=== PATIENT | female | born 1975 | race African-American/Black ===

== ENCOUNTER 2017-08-07 14:34 | Emergency (ER) | payer MEDICAID ==
[~2017-08-07] VITALS: Ht 170.2 cm; Wt 86.2 kg
[~2017-08-07 14:34] MED LIST: AZITHROMYCIN250 MG ORAL; CYCLOBENZAPRINE10 MG ORAL; IBUPROFEN600 MG ORAL; NKM; NORCO 5-325 TA1 EACH PO; SOMA350 MG PO
[2017-08-07 14:52] VITALS: BP 131/74
[2017-08-07] MEDS ORDERED: Ketorolac 60mg Inj IM ONE (15:45)
[2017-08-07] MEDS ORDERED: Metoclopramide 10mg/2ml Inj IM ONE (15:45)
[2017-08-07 16:17] LABS: APPEARANCE,URINE CLEAR; KETONES,URINE NEGATIVE (NEGATIVE); LEUKOCYTE ESTERASE ,URINE NEGATIVE (NEGATIVE); NITRITE,URINE NEGATIVE (NEGATIVE); PH,URINE 6.5 (4.5-8.0); PROTEIN,URINE NEGATIVE (NEGATIVE); UROBILINOGEN,URINE NORMAL MG/DL (0.0-1.0)
[2017-08-07] MEDS ORDERED: EXCEDRIN MIGRA1 EACH PO (17:04)
--- NOTE | 2017-08-07 17:04 | Emergency Room Report ---
History of Present Illness General Chief Complaint: Headache Source: Patient Present Illness HPI 41-year-old female presents to the emergency department complaining of 7/10 in severity progressive throbbing headache in the left frontal area of her head x3 days. Patient reports history of headaches however she denies diagnosis of migraines. Patient states that headaches usually resolved with over-the- counter Advil. Patient states that her symptoms are only mildly decreased with these interventions. Patient denies fevers, chills, urinary frequency, dysuria , hematuria, low back pain or recent illness. Patient denies dizziness, diplopia, photophobia, nausea or vomiting. She denies hyperacusis. Denies trauma or fall. Denies extremity weakness or instability . Denies CP, Palpitations, LOC, AMS, dizziness, Changes in Vision, Sensation, paresthesias, or a sudden severe headache. Allergies: Coded Allergies: No Known Allergies (Unverified , 02/19/15) Patient History Past Medical History: see triage record Past Surgical History: none Pertinent Family History: none Last Menstrual Period: one week ago Now: No Immunizations: UTD Reviewed Nursing Documentation: PMH: Agreed, PSxH: Agreed Nursing Documentation-PMH Past Medical History: No Stated History Review of Systems All Other Systems: negative except mentioned in HPI Physical Exam Vital Signs Date Time Temp Pulse Resp B/P (MAP) Pulse Ox O2 Delivery O2 Flow Rate FiO2 08/07/17 14:39 98.1 80 16 131/74 98 Room Air Sp02 EP Interpretation: reviewed, normal General Appearance: alert, GCS 15, non-toxic, mild distress Head: normocephalic, atraumatic Eyes: bilateral eye normal inspection, bilateral eye PERRL ENT: hearing grossly normal, normal voice, TMs + canals normal, uvula midline Neck: full range of motion, no meningismus, no bony tend, supple/symm/no masses Respiratory: lungs clear, normal breath sounds, speaking full sentences Cardiovascular #1: regular rate, rhythm Musculoskeletal: back normal, gait/station normal, normal range of motion, non- tender Neurologic: alert, oriented x3, responsive, motor strength/tone normal, sensory intact, cerebellar normal, normal gait, speech normal, no pronator, other - 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 Solorzano is my supervising Physician whom patient management has been discussed with. Diagnostic Impression: Primary Impression: Headache Qualified Codes: R51 - Headache ER Course 41-year-old female presents to the emergency department complaining of 7/10 in severity progressive throbbing headache in the left frontal area of her head x3 days. Patient reports history of headaches however she denies diagnosis of migraines. Patient states that headaches usually resolved with over-the- counter Advil. Patient states that her symptoms are only mildly decreased with these interventions. Patient denies fevers, chills, urinary frequency, dysuria , hematuria, low back pain or recent illness. Patient denies dizziness, diplopia, photophobia, nausea or vomiting. She denies hyperacusis. Denies trauma or fall. Denies extremity weakness or instability . Denies CP, Palpitations, LOC, AMS, dizziness, Changes in Vision, Sensation, paresthesias, or a sudden severe headache. - denies history of migraines Ddx considered but are not limited to migraine, SAH, Psedudo motor Cerebri, Mass lesion, Cluster POOL, Tension POOL, Post lumbar puncture POOL. Vital signs: are WNL, pt. is afebrile H&PE are most consistent with headache- with no focal neurological deficit, or acute onset. will r/o UTI and . Imaging is not warranted at this time. ORDERS: - UA: WNL- no evidence of infection -Urine HCG: negative ED INTERVENTIONS: -Reglan -IM Toradol DISCHARGE: At this time pt. is stable for d/c to home. Will provide printed patient care instructions, and any necessary prescriptions. Care plan and follow up instructions have been discussed with the patient prior to discharge. Labs Test 08/07/17 15:45 Urine Color Pale yellow Urine Appearance Clear Urine pH 6.5 (4.5-8.0) Urine Specific [place] 1.010 (1.005-1.035) Urine Protein Negative (NEGATIVE) Urine Glucose (UA) Negative (NEGATIVE) Urine Ketones Negative (NEGATIVE) Urine Occult Blood Negative (NEGATIVE) Urine Nitrite Negative (NEGATIVE) Urine Bilirubin Negative (NEGATIVE) Urine Urobilinogen Normal MG/DL (0.0-1.0) Urine Leukocyte Esterase Negative (NEGATIVE) Urine HCG, Qualitative Negative Last Vital Signs Date Time Temp Pulse Resp B/P (MAP) Pulse Ox O2 Delivery O2 Flow Rate FiO2 08/07/17 16:33 98.1 08/07/17 14:52 76 16 131/74 98 Room Air Disposition: HOME, SELF-CARE Condition: Stable Scripts Aspirin/Acetaminophen/Caffeine (EXCEDRIN MIGRAINE GELTAB) 1 Each Tablet 1 EACH PO Q6HR, #30 TAB Prov: Alise Figueroa 08/07/17 Referrals: [facility]ERR[facility] (PCP) Departure Forms: Return to Work Return to Work Date: Aug 08, 2017 Work Restrictions: None Return to Full Activity: Aug 08, 2017 Patient Instructions: General Headache Without Cause Additional Instructions: Take medications as directed. Follow up with a Neurologist in 3-5 days, even if your symptoms have resolved. --Please review list of primary care clinics, if you do not already have a primary care provider Return sooner to ED if new symptoms occur, or current symptoms become worse. - Please note that this Emergency Department Report was dictated using [employer] teacher technology software, occasionally this can lead to erroneous entry secondary to interpretation by the dictation equipment. Alise Figueroa Aug 07, 2017 17:04
[2017-08-07 17:14] VITALS: BP 128/73
[2017-08-07 17:16] VITALS: BP 128/73
== END 2017-08-07 17:26 | disposition home or self-care (01) ==
LOC: EMR 16:10
DX: R51 Headache (principal)
CPT/HCPCS: 81003; 81025; 96372; 99284; J2765

== ENCOUNTER 2018-02-26 10:06 | Emergency (ER) | payer MEDICAID ==
[~2018-02-26] VITALS: Ht 170.2 cm; Wt 85.7 kg
[~2018-02-26 10:06] MED LIST changes: +EXCEDRIN MIGRA1 EACH PO
[2018-02-26] MEDS ORDERED: IBUPROFEN600 MG ORAL ×2 (10:19→11:16)
[2018-02-26] MEDS ORDERED: Methocarbamol 750mg tab ORAL ONE (11:00)
[2018-02-26] MEDS ORDERED: Ketorolac 30mg Inj IM ONE (11:00)
--- NOTE | 2018-02-26 11:10 | Emergency Room Report ---
History of Present Illness General Chief Complaint: Pain Source: Patient Present Illness HPI 50-year-old female p/w back pain for 2 days. Pain is localized to right lower back, sharp in nature, radiating down leg. Movement worsens pain. There are no alleviating factors. Patient took Motrin with minimal relief. This is the first occurrence of back pain. Denies trauma. Denies lower extremity weakness/numbness, no bowel/bladder retention or incontinence, saddle anesthesia. Denies fever, chills, abdominal pain, n/v, dysuria/hematuria. No history of IVDA Allergies: Coded Allergies: No Known Allergies (Unverified , 02/19/15) Patient History Past Medical History: see triage record Past Surgical History: none Pertinent Family History: none Last Menstrual Period: 01/23/2018 Now: No Reviewed Nursing Documentation: PMH: Agreed; PSxH: Agreed Nursing Documentation-PMH Past Medical History: No Stated History Review of Systems All Other Systems: negative except mentioned in HPI Physical Exam Vital Signs Date Time Temp Pulse Resp B/P (MAP) Pulse Ox O2 Delivery O2 Flow Rate FiO2 02/26/18 10:13 98.4 90 16 133/67 97 Room Air 98.4 Sp02 EP Interpretation: reviewed, normal General Appearance: alert, GCS 15, moderate distress Head: normocephalic, atraumatic Eyes: bilateral eye normal inspection, bilateral eye PERRL, bilateral eye EOMI ENT: normal ENT inspection, normal pharynx, normal voice, moist mucus membranes Neck: normal inspection, full range of motion, supple Respiratory: normal inspection, lungs clear, normal breath sounds, no respiratory distress, no retraction, no wheezing, speaking full sentences, chest symmetrical Cardiovascular #1: normal inspection, regular rate, rhythm, no edema, normal capillary refill Cardiovascular #2: 2+ radial (R), 2+ radial (L) Gastrointestinal: normal inspection, non tender, soft, non-distended, no guarding Musculoskeletal: other - R lower lumbar paraspinal tenderness no midline tenderness from all ext Neurologic: normal inspection, alert, oriented x3, responsive, motor strength/ tone normal, sensory intact, normal gait, speech normal Psychiatric: normal inspection, judgement/insight normal, memory normal Skin: normal inspection, normal color, no rash, warm/dry, well hydrated, normal turgor Medical Decision Making Diagnostic Impression: Primary Impression: Back pain ER Course 50-year-old female p/w back pain DDX: Likely musculoskeletal back pain vs. muscular strain vs. sciatica Lumbar fracture is unlikely given patients age, no midline tenderness, no history of trauma, and that patient is ambulatory. Therefore, at this time no imaging is indicated Serious diagnoses such as cord compression, epidural abscess is unlikely in this patient given the clinical scenario and abscess of neurological symptoms or findings. Patient appears nontoxic. Plan: Toradol Robaxin ER course: Patient has remained nontoxic appearing and ambulatory in the ED. Pain improved w/ medications Disposition: Patient will be discharged to home with prescription of motrin and robaxin. Patient cautioned of the effects of robaxin including possible impairment of physical or mental abilities. Patient was instructed to refrain from operating machinery or driving. Strict precautions discussed with patient on when to emergently return to the ED which includes severe/worsening back pain, leg weakness/numbness, urinary retention/incontinence, fever or chills, which may indicate severe illness. Patient is to follow up with their PMD within 5 days. Patient agrees with plan. Please note that this Emergency Department Report was dictated using [employer] and table edger technology software, occasionally this can lead to erroneous entry secondary to interpretation by the dictation equipment. Last Vital Signs Date Time Temp Pulse Resp B/P (MAP) Pulse Ox O2 Delivery O2 Flow Rate FiO2 02/26/18 10:13 98.4 90 16 133/67 97 Room Air 98.4 Disposition: HOME, SELF-CARE Condition: Improved Scripts Ibuprofen* (MOTRIN*) 600 Mg Tablet 600 MG ORAL Q8H PRN for For Pain, #30 TAB 0 Refills Prov: Ivan Sousa M.D. 02/26/18 Methocarbamol* (ROBAXIN-750*) 750 Mg Tablet 750 MG PO TID, #21 TAB 0 Refills Prov: Ivan Sousa M.D. 02/26/18 Referrals: [facility]ERR[facility] (PCP) Ivan Sousa M.D. Feb 26, 2018 11:10
[2018-02-26] MEDS ORDERED: ROBAXIN-750750 MG PO (11:16)
[2018-02-26 11:50] VITALS: BP 133/67
== END 2018-02-26 11:51 | disposition home or self-care (01) ==
LOC: EMR 10:50
DX: M54.5 Low back pain (principal)
CPT/HCPCS: 96372; 99284; J1885

== ENCOUNTER 2018-04-21 14:58 | Emergency (ER) | payer MEDICAID ==
[~2018-04-21] VITALS: Ht 170.2 cm; Wt 87.1 kg
[~2018-04-21 14:58] MED LIST changes: +ROBAXIN-750750 MG PO
[2018-04-21 15:14] VITALS: BP 130/82
--- NOTE | 2018-04-21 15:29 | Emergency Room Report ---
History of Present Illness General Chief Complaint: Skin Rash/Abscess Source: Patient Present Illness HPI 42-year-old female presents emergency department complaining of rash under bilateral breasts 10 days. Patient describes some mild itching and slight peeling otherwise no pain. Patient denies swelling. Denies fevers or chills. Denies hx of eczema. Denies lesions/rashes elsewhere on the body. Denies new medications or body washes or creams or perfumes. Denies swelling of the lips, tongue , throat or airway. Denies wheezing, or shortness of breath. Denies recent travel, recent illness or ill contacts. denies blisters, oral lesions, or sloughing of the skin. Allergies: Coded Allergies: No Known Allergies (Unverified , 02/19/15) Patient History Past Medical History: see triage record Past Surgical History: none Pertinent Family History: none Last Menstrual Period: March 24, 2018 Now: No : 3 Para: 2 Reviewed Nursing Documentation: PMH: Agreed; PSxH: Agreed Nursing Documentation-PMH Past Medical History: No Stated History Review of Systems All Other Systems: negative except mentioned in HPI Physical Exam Vital Signs Date Time Temp Pulse Resp B/P (MAP) Pulse Ox O2 Delivery O2 Flow Rate FiO2 04/21/18 15:04 98.4 84 18 130/82 97 Room Air 98.4 Sp02 EP Interpretation: reviewed, normal General Appearance: no apparent distress, alert, GCS 15, non-toxic Head: normocephalic, atraumatic Eyes: bilateral eye normal inspection, bilateral eye PERRL ENT: hearing grossly normal, normal pharynx, no angioedema, normal voice, other - no swelling of the lips or tongue, no oral lesions Neck: full range of motion Respiratory: chest non-tender, lungs clear, normal breath sounds, no wheezing, speaking full sentences, other - hyperpigmented scaly annular rash under bilateral breasts. no increased temperature to palpation, blisters, vesicles or d/c. Cardiovascular #1: regular rate, rhythm Musculoskeletal: back normal, gait/station normal, normal range of motion, non- tender Neurologic: alert, oriented x3, responsive, motor strength/tone normal, sensory intact, speech normal, grossly normal Psychiatric: judgement/insight normal Skin: normal color, warm/dry, well hydrated, rash - hyperpigmented scaly annular rash under bilateral breasts. no increased temperature to palpation, blisters, vesicles or d/c. Medical Decision Making PA Attestation Dr. Patton is my supervising Physician whom patient management has been discussed with. Diagnostic Impression: Primary Impression: Rash and other nonspecific skin eruption ER Course 42-year-old female presents emergency department complaining of rash under bilateral breasts 10 days. Patient describes some mild itching and slight peeling otherwise no pain. Patient denies swelling. Denies fevers or chills. Denies hx of eczema. Denies lesions/rashes elsewhere on the body. Denies new medications or body washes or creams or perfumes. Denies swelling of the lips, tongue , throat or airway. Denies wheezing, or shortness of breath. Denies recent travel, recent illness or ill contacts. denies blisters, oral lesions, or sloughing of the skin. Ddx considered but are not limited to cellulitis, scabies, shingles, varicella, dermatitis, urticaria, eczema, tinea, viral exanthem, SJS Vital signs: are WNL, pt. is afebrile H&PE are most consistent with Tinea due to annular appearance. no evidence to suggest impending airway compromise or anaphylaxis. No evidence of secondary bacterial infection. ORDERS: none required at this time, the diagnosis is clinical ED INTERVENTIONS: None required at this time. --I do not identify an emergent condition at this time. With current presentation, pt. is stable for close outpatient follow up and conservative treatment. D/w pt. to return promptly to ED with worsening or new symptoms.- Pt. verbalizes' her understanding and agreement with proposed treatment plan.proposed treatment plan. DISCHARGE: At this time pt. is stable for d/c to home. Will provide printed patient care instructions, and any necessary prescriptions. Care plan and follow up instructions have been discussed with the patient prior to discharge. Last Vital Signs Date Time Temp Pulse Resp B/P (MAP) Pulse Ox O2 Delivery O2 Flow Rate FiO2 04/21/18 15:14 98.4 18 130/82 97 Room Air 98.4 04/21/18 15:04 84 Disposition: HOME, SELF-CARE Condition: Stable Scripts Ketoconazole (KETOCONAZOLE) 120 Ml Shampoo 1 APPLIC TP BID, #120 ML Prov: Alise Figueroa 04/21/18 Nystatin/Triamcin (NYSTATIN-TRIAMCINOLONE CREAM) 15 Gm Cream..g. 15 GM TP BID, #15 GM Prov: Alise Figueroa 04/21/18 Patient Instructions: Rash Additional Instructions: Take medications as directed. Follow up with a Primary Care Provider in 3-5 days, even if your symptoms have resolved. --Please review list of primary care clinics, if you do not already have a primary care provider Return sooner to ED if new symptoms occur, or current symptoms become worse. - Please note that this Emergency Department Report was dictated using [employer] cleaner technology software, occasionally this can lead to erroneous entry secondary to interpretation by the dictation equipment. Alise Figueroa Apr 21, 2018 15:28
[2018-04-21] MEDS ORDERED: NYSTATIN-TRIAMC15 G2 TP (15:30)
[2018-04-21] MEDS ORDERED: KETOCONAZOLE120 ML TP (15:30)
[2018-04-21 15:36] VITALS: BP 130/82
== END 2018-04-21 23:35 | disposition home or self-care (01) ==
LOC: EMR 15:23
DX: R21 Rash and other nonspecific skin eruption (principal)
CPT/HCPCS: 99284

== ENCOUNTER 2018-12-15 13:14 | Emergency (ER) | payer MEDICAID ==
[~2018-12-15] VITALS: Ht 170.2 cm; Wt 92.1 kg
[~2018-12-15 13:14] MED LIST changes: +KETOCONAZOLE120 ML TP; +NYSTATIN-TRIAMC15 G2 TP
[2018-12-15 14:10] VITALS: BP 130/74
--- NOTE | 2018-12-15 14:10 | NUR ---
ED Nurse Note: A/OX4. AMBULATED IN TO ER DUE TO PAIN IN UNDERNEATH THE TONGUE. PT STATES THAT SHE WAS SEEN BY THE DENTIST THIS MORNING AND FEELS LIKE HER SKIN UNDERNEATH THE TONGUE GOT TEAR OFF WHEN DENTIST TRIED TO REMOVE THE GLUE. NO SPEECH DIFFICULITY NOR TONGUE EDEMA.
[2018-12-15] MEDS ORDERED: ROBAXIN500 MG PO (14:37)
[2018-12-15] MEDS ORDERED: TYLENOL EXTRA500 MG ORAL (14:37)
--- NOTE | 2018-12-15 14:37 | Emergency Room Report ---
History of Present Illness General Chief Complaint: Skin Rash/Abscess Source: Patient Present Illness HPI 43-year-old female patient presents the ER complaining of a lesion in the floor of her mouth. Patient reports that she was at the dentist earlier today having a mold of her teeth made, states when they remove the molds she experienced some pain in the bottom portion of her mouth, states mild bleeding noted. Reports she left the dentist immediately after that when she was told that "it is fine". Reports not taking any antibiotics currently. Denies fever, chest pain, shortness of breath. Denies tooth pain. Also complaining of right-sided lower back pain. Reports pain is been present for the past month. Reports history of scoliosis, states that may be related to that. Denies bowel or bladder incontinence. Denies pain radiating down her legs. Denies dysuria, hematuria. States has not taking any medication for relief of symptoms. Reports pain worse with sitting. Patient also complaining of suprapubic abdominal pain for the past few days. Denies vomiting or diarrhea. Denies pain with urination. Reports able to pass flatus. Denies constipation or diarrhea. Denies recent sexual activity. Denies blood in stool or urine. Denies acute injury or trauma. Allergies: Coded Allergies: No Known Allergies (Unverified , 02/19/15) Patient History Past Medical History: see triage record Last Menstrual Period: last month Now: No Reviewed Nursing Documentation: PMH: Agreed; PSxH: Agreed Nursing Documentation-PMH Past Medical History: No Stated History Review of Systems All Other Systems: negative except mentioned in HPI Physical Exam Vital Signs Date Time Temp Pulse Resp B/P (MAP) Pulse Ox O2 Delivery O2 Flow Rate FiO2 12/15/18 14:06 98.6 83 18 130/74 99 Room Air Sp02 EP Interpretation: reviewed, normal General Appearance: well appearing, no apparent distress, alert, GCS 15, non- toxic Head: normocephalic, atraumatic Eyes: bilateral eye normal inspection, bilateral eye PERRL ENT: hearing grossly normal, normal pharynx, no angioedema, normal voice, uvula midline, moist mucus membranes, other - Mild erythema and dried blood noted on basement of oral cavity, no active bleeding, small abrasion noted Neck: full range of motion Respiratory: lungs clear, normal breath sounds, no rhonchi, no respiratory distress, no accessory muscle use, no wheezing, speaking full sentences Cardiovascular #1: regular rate, rhythm, no edema Gastrointestinal: non tender, soft, no mass, non-distended, no guarding, no rebound Genitourinary: no CVA tenderness Musculoskeletal: back normal, digits/nails normal, gait/station normal, normal range of motion, non-tender Neurologic: alert, oriented x3, responsive, motor strength/tone normal, SLR negative, sensory intact Psychiatric: mood/affect normal Skin: no rash Lymphatic: no adenopathy Medical Decision Making PA Attestation Dr. Awad is my supervising Physician whom patient management has been discussed with. Diagnostic Impression: Primary Impression: Abrasion of oral cavity Additional Impressions: History of scoliosis Suprapubic abdominal pain ER Course Pt. presents to the ED c/o mouth lesion, back pain, suprapubic pain. Ddx considered but are not limited to acute exacerbation of chronic pain, UTI, gastritis. Vital signs: are WNL, pt. is afebrile ER COURSE: Advised patient to follow-up with dentist. Small abrasion noted on basement of mouth, likely related to symptoms. No active bleeding, no laceration, does not require laceration repair. Advised patient on salt water gargles and taking Tylenol for pain, no surrounding erythema or edema, does not require antibiotics at this time. Follow-up with dentist to discuss further treatment and referral. Denies bowel or bladder incontinence, low suspicion for cauda equina. Denies acute injury or trauma, low suspicion for fracture, does not require x-ray at this time, Will provide patient with muscle relaxant with pain symptoms. No abdominal tenderness palpation, UA unremarkable, no signs of infection. Denies diarrhea or vomiting. Low suspicion for appendicitis or SBO. Urine negative. Advised patient return to the ER if pain symptoms worsen. Does not require CT or labs at this time. ER precautions given. DISCHARGE: At this time pt is stable for d/c to home. Patient is resting comfortably, in no acute distress, nontoxic appearing, talking without difficulty. Patient to take medications as instructed Will provide with patient care instructions and any necessary prescriptions. Care plan and follow-up instructions provided. Patient instructed to follow-up with primary care provider in 3 - 5 days. Patient questions asked and answered. Patient reports understanding and agreement to treatment plan. ER precautions given. Patient instructed to return to ER immediately for any new or worsening of symptoms including but not limited to increasing SOB, persistent fever, chest pain, intractable vomiting. - Please note that this Emergency Department Report was dictated using [employer] roaster technology software, occasionally this can lead to erroneous entry secondary to interpretation by the dictation equipment. Labs Test 12/15/18 14:40 Urine Color Pale yellow Urine Appearance Clear Urine pH 5 (4.5-8.0) Urine Specific [place] 1.020 (1.005-1.035) Urine Protein Negative (NEGATIVE) Urine Glucose (UA) Negative (NEGATIVE) Urine Ketones Negative (NEGATIVE) Urine Blood Negative (NEGATIVE) Urine Nitrite Negative (NEGATIVE) Urine Bilirubin Negative (NEGATIVE) Urine Urobilinogen Normal MG/DL (0.0-1.0) Urine Leukocyte Esterase Negative (NEGATIVE) Urine HCG, Qualitative Negative (NEGATIVE) Last Vital Signs Date Time Temp Pulse Resp B/P (MAP) Pulse Ox O2 Delivery O2 Flow Rate FiO2 12/15/18 14:06 98.6 83 18 130/74 99 Room Air Status: improved Disposition: HOME, SELF-CARE Condition: Stable Scripts Acetaminophen* (TYLENOL EXTRA STRENGTH*) 500 Mg Tablet 500 MG ORAL Q8H PRN for Prn Headache/Temp > 101, #30 TAB 0 Refills Prov: Eliezer Andrade 12/15/18 Methocarbamol* (ROBAXIN*) 500 Mg Tablet 500 MG PO TID, #21 TAB 0 Refills Prov: Eliezer Andrade 12/15/18 Patient Instructions: Abdominal Pain, Adult, [id number], Dental Pain, Easy-to -Read, Scoliosis Additional Instructions: Patient instructed to follow up with primary care provider 3-5 and discuss further referral and imaging at that time. Follow-up with primary care provider. Follow-up with dentist salt water gargles. Take Tylenol for pain.. Patient instructed on rest, ice and heat. Do not take muscle relaxant prior to drinking, driving, or operating heavy machinery. Take medications as directed. Patient questions asked and answered. ER precautions given, patient instructed to return to ER immediately for any new or worsening of symptoms. [facility] [address] [facility], [address] [email or web address] Eliezer Andradeb 11, 2019 14:37
[2018-12-15 15:22] LABS: APPEARANCE,URINE CLEAR; BILIRUBIN, URINE NEGATIVE (NEGATIVE); COLOR,URINE PALE YELLOW; GLUCOSE, URINE (UA) NEGATIVE (NEGATIVE); KETONES,URINE NEGATIVE (NEGATIVE); LEUKOCYTE ESTERASE ,URINE NEGATIVE (NEGATIVE); NITRITE,URINE NEGATIVE (NEGATIVE); PH,URINE 5 (4.5-8.0); PROTEIN,URINE NEGATIVE (NEGATIVE); UROBILINOGEN,URINE NORMAL MG/DL (0.0-1.0)
[2018-12-15 15:47] VITALS: BP 130/74
--- NOTE | 2018-12-15 15:48 | NUR ---
ED Nurse Note: A/Ox4. Pt is cleared by [facility]. DC instruction and prescriptions given, pt verbalized understanding. IV/ID wristband removed. All belongings taken by pt. Denies pain at this time. Pt ambulated out of ER with steady gait.
== END 2018-12-15 15:48 | disposition home or self-care (01) ==
LOC: EMR 15:25
DX: S00.512A Abrasion of oral cavity, initial encounter (principal); X58.XXXA Exposure to other specified factors, initial encounter; Y92.89 Other specified places as the place of occurrence of the external cause; R10.30 Lower abdominal pain, unspecified; M54.5 Low back pain
CPT/HCPCS: 81003; 81025; 99283